=== PATIENT | female | born 1980 | race Caucasian/White ===

== ENCOUNTER 2018-02-01 20:01 | Emergency (ER) | payer OTHER, MEDICAID ==
[~2018-02-01] VITALS: Ht 152.4 cm; Wt 72.6 kg
[~2018-02-01 20:01] MED LIST: ACETAMINOPHEN-1 EAC1 PO; ACYCLOVIR 800800 MG PO; AMOXICILLIN 50500 MG; ANDRODERM1 EAC2 PO; BACTRIM DS TAB1 EACH PO; BENADRYL ITCH28.3 G1 TP; CARBAMAZEPINE200 M2 PO; CLONAZEPAM 0.50.5 M1; CLONAZEPAM 1 MG1 M1 PO; CYCLOBENZAPRINE; DARVOCET-N 1001 EACH PO; DIVIGEL0.25 MG TD; ESTRACE1 MG PO; FAMVIR250 MG PO; FLEXERIL PO; FLOMAX0.4 MG PO; HYDROCODONE-AP1 EAC6 PO; HYDROCORTISONE30 G9 RE; HYOSCYAMINE0.375 M2 PO; IBUPROFEN 800800 M1 PO; IBUPROFEN 800800 MG PO; IMITREX 50 MG T50 MG PO; IMITREX100 MG PO; LIDOCAINE VISC100 M1 MM; MEDROLDOSEPACK PO; NAPROSYN500 MG PO; NOHOMEMEDICATIONS; NORCO 10-325 T1 EACH; NORCO 5-325 TA1 EACH PO; ORPHENADRINE C100 M2 PO; PENICILLIN V P500 MG PO; PENICILLIN VK500 MG PO; PERCOCET 5-3251 EACH PO; PREDNISONE 20 M20 M1 PO; PREDNISONE 20 M20 MG PO; PREDNISONE50 MG PO; PROPRANOLOL 1010 M1 PO; PROZAC40 MG; PYRIDIUM200 MG PO; ROBAXIN500 MG PO; TEGRETOL XR200 MG; TEGRETOL XR200 MG PO; TRAZODONE 150150 M1 PO; TUSSIONEX PENN473 ML PO; VENTOLIN HFA 1818 GM INH; XANAX 0.5 MG0.5 MG PO; ZOFRAN 4 MG ORAL4 MG PO; ZOFRAN ODT4 MG PO; ZOVIRAX 5% OINT15 GM TP; ZPAK PO
[2018-02-01] MEDS ORDERED: BUSPIRONE HCL10 MG PO (20:10)
[2018-02-01] MEDS ORDERED: ABILIFY 5 MG TAB5 M1 PO (20:10)
[2018-02-01] MEDS ORDERED: PROMETHAZINE V473 ML PO (20:24)
[2018-02-01] MEDS ORDERED: PROAIR HFA8.5 GM INH (20:24)
[2018-02-01] MEDS ORDERED: TESSALON PERLE100 MG PO (20:24)
[2018-02-01] MEDS ORDERED: AMOXICILLIN 50500 MG PO (20:24)
[2018-02-01 20:36] VITALS: BP 143/74
== END 2018-02-01 20:49 | disposition home or self-care (01) ==
LOC: M.ERS 20:01
DX: J20.9 Acute bronchitis, unspecified (principal); G43.909 Migraine, unspecified, not intractable, without status migrainosus; F31.9 Bipolar disorder, unspecified; M19.90 Unspecified osteoarthritis, unspecified site; G89.29 Other chronic pain; M54.9 Dorsalgia, unspecified; N80.9 Endometriosis, unspecified; F17.210 Nicotine dependence, cigarettes, uncomplicated; Z90.710 Acquired absence of both cervix and uterus; Z90.89 Acquired absence of other organs; Z87.442 Personal history of urinary calculi; Z88.5 Allergy status to narcotic agent; Z88.8 Allergy status to other drugs, medicaments and biological substances

== ENCOUNTER 2018-02-07 20:31 | Emergency (ER) | payer OTHER, MEDICAID ==
[~2018-02-07] VITALS: Ht 152.4 cm; Wt 77.1 kg
[~2018-02-07 20:31] MED LIST changes: +ABILIFY 5 MG TAB5 M1 PO; +AMOXICILLIN 50500 MG PO; +BUSPIRONE HCL10 MG PO; +PROAIR HFA8.5 GM INH; +PROMETHAZINE V473 ML PO; +TESSALON PERLE100 MG PO
[2018-02-07] MEDS ORDERED: LAMICTAL XR200 MG (20:45)
[2018-02-07 22:16] VITALS: BP 115/77
== END 2018-02-07 22:19 | disposition home or self-care (01) ==
LOC: M.ERS 20:31
DX: G43.909 Migraine, unspecified, not intractable, without status migrainosus (principal); F31.9 Bipolar disorder, unspecified; M19.90 Unspecified osteoarthritis, unspecified site; G89.29 Other chronic pain; M54.9 Dorsalgia, unspecified; F17.210 Nicotine dependence, cigarettes, uncomplicated; Z90.710 Acquired absence of both cervix and uterus; Z87.442 Personal history of urinary calculi; Z90.89 Acquired absence of other organs; Z88.5 Allergy status to narcotic agent; Z88.8 Allergy status to other drugs, medicaments and biological substances

== ENCOUNTER 2018-03-03 19:29 | Emergency (ER) | payer OTHER, MEDICAID ==
[~2018-03-03] VITALS: Ht 152.4 cm; Wt 79.1 kg
[~2018-03-03 19:29] MED LIST changes: +LAMICTAL XR200 MG
[2018-03-03 19:39] VITALS: BP 135/66
[2018-03-03] MEDS ORDERED: NEURONTIN 300300 M1 PO (19:41)
[2018-03-03 20:17] LABS: URINE BILIRUBIN NEGATIVE (Negative); URINE BLOOD NEGATIVE (Negative); URINE CLARITY CLOUDY; URINE COLOR YELLOW; URINE GLUCOSE-RANDOM NEGATIVE (Negative); URINE KETONES NEGATIVE (Negative); URINE LEUKOCYTES-REFLEX NEGATIVE (Negative); URINE NITRITE-REFLEX NEGATIVE (Negative); URINE PROTEIN NEGATIVE (Negative); URINE UROBILINOGEN 0.2 E.U./dl (0.2-1.0)
[2018-03-03 20:25] LABS: CASTS None Seen /LPF (None Seen); SQUAMOUS >10 Many /LPF (0-3)
[2018-03-03 20:26] LABS: AMORPHOUS PHOSPHATES Many /LPF (None Seen); URINE RBC 0-2 Rare /HPF (0-2); URINE WBC-REFLEX 0-5 Rare /HPF (0-5)
[2018-03-03] MEDS ORDERED: MEDROLDOSEPACK PO (20:30)
[2018-03-03] MEDS ORDERED: HYDROCODONE-AP1 EAC6 PO (20:30)
== END 2018-03-03 21:07 | disposition home or self-care (01) ==
LOC: M.ERS 19:29
PROVIDERS: Physician Assistant
DX: M54.5 Low back pain (principal); G43.909 Migraine, unspecified, not intractable, without status migrainosus; F31.9 Bipolar disorder, unspecified; M19.90 Unspecified osteoarthritis, unspecified site; F17.210 Nicotine dependence, cigarettes, uncomplicated; Z87.442 Personal history of urinary calculi; Z88.5 Allergy status to narcotic agent; Z88.8 Allergy status to other drugs, medicaments and biological substances

== ENCOUNTER 2018-04-18 17:49 | Emergency (ER) | payer OTHER, MEDICAID ==
[~2018-04-18] VITALS: Ht 152.4 cm; Wt 77.1 kg
[~2018-04-18 17:49] MED LIST changes: +NEURONTIN 300300 M1 PO
[2018-04-18] MEDS ORDERED: NAPROSYN500 MG PO (18:51)
[2018-04-18 19:52] VITALS: BP 119/78
== END 2018-04-18 19:53 | disposition home or self-care (01) ==
LOC: M.ERS 17:49
DX: M54.5 Low back pain (principal); G43.909 Migraine, unspecified, not intractable, without status migrainosus; F31.9 Bipolar disorder, unspecified; M19.90 Unspecified osteoarthritis, unspecified site; G89.29 Other chronic pain; F17.210 Nicotine dependence, cigarettes, uncomplicated; Z88.5 Allergy status to narcotic agent

== ENCOUNTER 2018-05-16 23:25 | Emergency (ER) | payer OTHER, MEDICAID ==
[~2018-05-16] VITALS: Ht 152.4 cm; Wt 77.1 kg
[2018-05-16] MEDS ORDERED: LAMICTAL100 MG (23:38)
[2018-05-16] MEDS ORDERED: BACTROBAN CREAM30 G1 TOP (23:51)
[2018-05-16] MEDS ORDERED: DOXYCYCLINE 10100 MG PO (23:51)
[2018-05-17 00:06] VITALS: BP 132/60
== END 2018-05-17 00:07 | disposition home or self-care (01) ==
LOC: M.ERS 23:25
DX: L98.9 Disorder of the skin and subcutaneous tissue, unspecified (principal); F31.9 Bipolar disorder, unspecified; G43.909 Migraine, unspecified, not intractable, without status migrainosus; M19.90 Unspecified osteoarthritis, unspecified site; F17.210 Nicotine dependence, cigarettes, uncomplicated; Z90.710 Acquired absence of both cervix and uterus; Z88.6 Allergy status to analgesic agent; Z88.8 Allergy status to other drugs, medicaments and biological substances

== ENCOUNTER 2018-09-17 11:05 | Emergency (ER) | payer OTHER, MEDICAID ==
[~2018-09-17] VITALS: Ht 152.4 cm; Wt 79.4 kg
[~2018-09-17 11:05] MED LIST changes: +BACTROBAN CREAM30 G1 TOP; +DOXYCYCLINE 10100 MG PO; +LAMICTAL100 MG
[2018-09-17] MEDS ORDERED: KEFLEX500 M1 PO (11:18)
[2018-09-17 11:23] VITALS: BP 133/82
== END 2018-09-17 11:23 | disposition home or self-care (01) ==
LOC: M.ERS 11:05
DX: L03.112 Cellulitis of left axilla (principal); G43.909 Migraine, unspecified, not intractable, without status migrainosus; F31.9 Bipolar disorder, unspecified; M19.90 Unspecified osteoarthritis, unspecified site; M54.9 Dorsalgia, unspecified; G89.29 Other chronic pain; Z90.710 Acquired absence of both cervix and uterus; F17.210 Nicotine dependence, cigarettes, uncomplicated; Z88.5 Allergy status to narcotic agent; Z88.8 Allergy status to other drugs, medicaments and biological substances

== ENCOUNTER 2018-11-21 16:57 | Inpatient (IN) | payer OTHER, MEDICAID ==
[~2018-11-21] VITALS: Ht 152.4 cm; Wt 81.2 kg
[~2018-11-21 16:57] MED LIST changes: +KEFLEX500 M1 PO; -LAMICTAL100 MG; +LAMOTRIGINE150 MG PO
[2018-11-21 17:08] VITALS: BP 136/71
[2018-11-21] MEDS ORDERED: LOPRESSOR50 PO (17:12)
[2018-11-21] MEDS ORDERED: XANAX1 MG PO (17:13)
[2018-11-21] MEDS ORDERED: NORCO 7.5-3251 EACH PO (17:14)
[2018-11-21 17:47] LABS: ABSOLUTE BASOPHILS 0.1 thou/uL (0.0-0.2); ABSOLUTE LYMPHOCYTES 2.6 thou/uL (0.8-5.3); ABSOLUTE MONOCYTES 0.9 thou/uL (0.0-1.2); ABSOLUTE NEUTROPHILS 10.2 thou/uL (1.6-8.1); BASOPHILS 0.7 %; EOSINOPHILS 0.2 %; HEMATOCRIT 34.1 % (37.0-47.0); HEMOGLOBIN 11.2 gm/dL (12.0-15.0); LYMPHOCYTES 18.7 %; MCH 32.5 pg (26.0-34.0); MCHC 32.9 g/dL (28.0-37.0); MCV 98.7 fL (80.0-100.0); MONOCYTES 6.2 %; MPV 8.2 fl. (7.2-11.1); NUCLEATED RBCS 0 /100WBC; PLATELET COUNT* 227 thou/uL (150-400); POLYS 74.2 %; RBC 3.45 mil/uL (4.20-5.00); RDW-CV 12.5 % (10.5-14.5); WBC 13.8 thou/uL (4.0-11.0)
[2018-11-21 17:59] LABS: ANION GAP 6 mmol/L (7-16); BUN 9 mg/dL (7-18); CALCIUM 8.5 mg/dL (8.5-10.1); CHLORIDE 106 mmol/L (98-107); CO2 27 mmol/L (21-32); CREATININE 0.7 mg/dL (0.6-1.3); GLUCOSE 85 mg/dL (70-99); POTASSIUM 3.3 mmol/L (3.5-5.1); SODIUM 139 mmol/L (136-145)
[2018-11-21 18:11] LABS: ALBUMIN 2.9 g/dL (3.4-5.0); ALKALINE PHOSPHATASE 66 U/L (46-116); SGOT 20 U/L (15-37); SGPT 21 U/L (30-65); TOTAL BILIRUBIN 0.3 mg/dL (<0.1-1.0); TOTAL PROTEIN 6.4 g/dL (6.4-8.2); TROPONIN-I LEVEL <0.06 ng/mL (<0.06)
[2018-11-21 19:02] VITALS: BP 130/78
--- NOTE | 2018-11-21 19:43 | NUR ---
PATIENT ARRIVED TO FLOOR AT 1845. PLACED ON RETAIL LOAN OFFICER, TRACING ST. PATIENT ON 2L/NC. SETTLED INTO BED. ORIENTED TO ROOM, BED CONTROLS, CALL LIGHT AND ENVIRONMENT. FAMILY AT BEDSIDE. IV ANTIBIOTICS CURRENTLY INFUSING. REPORT GIVEN TO ONCOMING NURSE. CALL LIGHT WITHIN REACH. WILL CONTINUE WITH PLAN OF CARE.
[2018-11-21 20:00] VITALS: BP 131/74
[2018-11-22] VITALS: BP 125/79
[2018-11-22 04:00] VITALS: BP 130/81
--- NOTE | 2018-11-22 04:09 | NUR ---
Patient arrived on unit at 1855. family practice physician assessment completed as documented. No complaints of pain or discomfort noted. Did state that she was nauseous as she sent her family to get her taco [employer]ill[employer] for dinner. Finished a box lunch at approx 2300 last evening. Sinus rhythm to sinus tach on the monitor. No skin issues noted. Able to ambulate independently to the restroom.
[2018-11-22 04:45] LABS: HEMATOCRIT 32.9 % (37.0-47.0); HEMOGLOBIN 11.1 gm/dL (12.0-15.0); MCH 33.1 pg (26.0-34.0); MCHC 33.6 g/dL (28.0-37.0); MCV 98.5 fL (80.0-100.0); MPV 8.8 fl. (7.2-11.1); NUCLEATED RBCS 0 /100WBC; PLATELET COUNT* 214 thou/uL (150-400); RBC 3.34 mil/uL (4.20-5.00); RDW-CV 12.5 % (10.5-14.5); WBC 9.8 thou/uL (4.0-11.0)
[2018-11-22 04:56] LABS: CALCIUM 8.3 mg/dL (8.5-10.1); CREATININE 0.7 mg/dL (0.6-1.3); POTASSIUM 4.1 mmol/L (3.5-5.1)
[2018-11-22 05:46] LABS: ABSOLUTE LYMPHOCYTES 0.7 thou/uL (0.8-5.3); ABSOLUTE MONOCYTES 0.1 thou/uL (0.0-1.2); PLATELET ESTIMATE ADEQUATE
[2018-11-22 05:47] LABS: ANISOCYTOSIS 1+; POIKILOCYTOSIS 1+
[2018-11-22 08:30] VITALS: BP 145/93
[2018-11-22 09:45] LABS: URINE BILIRUBIN NEGATIVE (Negative); URINE BLOOD NEGATIVE (Negative); URINE CLARITY CLEAR; URINE COLOR YELLOW; URINE GLUCOSE-RANDOM NEGATIVE (Negative); URINE KETONES NEGATIVE (Negative); URINE LEUKOCYTES-REFLEX NEGATIVE (Negative); URINE NITRITE-REFLEX NEGATIVE (Negative); URINE PROTEIN NEGATIVE (Negative); URINE UROBILINOGEN 0.2 E.U./dl (0.2-1.0)
[2018-11-22 09:53] LABS: AMP/METHAMP Negative (Negative); BARBITURATES Negative (Negative); BENZODIAZEPINES POSITIVE (Negative); COCAINE Negative (Negative); METHADONE Negative (Negative); OPIATES POSITIVE (Negative); PCP Negative (Negative); THC Negative (Negative)
[2018-11-22 11:04] VITALS: BP 130/81
[2018-11-22] MEDS ORDERED: PROTONIX40 M1 PO (11:13)
[2018-11-22] MEDS ORDERED: AUGMENTIN 875-1 EACH PO (11:13)
[2018-11-22] MEDS ORDERED: PREDNISONE 10 M10 MG PO (11:15)
[2018-11-22] MEDS ORDERED: VENTOLIN HFA 1818 GM INH (11:16)
[2018-11-22 13:23] VITALS: BP 130/81
--- NOTE | 2018-11-22 13:27 | NUR ---
PATIENT IS ALERT AND ORIENTED TODAY, UP AD NOAH IN ROOM. VITAL SIGNS STABLE ON ROOM AIR. NO COMPLAINTS OF ANY KIND TODAY. PATIENT IS BEING DISCHARGED TO HOME. DISCHARGE INSTRUCTIONS AND PRESCRIPTIONS GIVEN TO PATIENT. QUESTIONS ANSWERED FOR PATIENT. AMBULATED OUT WITH VOLUNTEER TO HOME.
--- NOTE | 2018-11-22 13:55 | EKG ---
[place] [address] ELECTROCARDIOGRAM REPORT Name: SAADIA LECHUGA Room: [address] IN [facility].#: [id number] Admission: 11/21/18 Attend Phys: Aaron Cooper MD Discharge: 11/22/18 Date of : 82 Report #: [id number] THIS REPORT FOR: //name// [facility] ED Test Date: 2018-11-21 Test Time: 17:28:16 Pat Name: SAADIA LECHUGA Department: Room: [facility] Gender: F Brands Editor: ARASH : 1980 Requested By: Alla Knight Order Number: [id number] MD: Cabrera Hall Measurements Intervals Nenzel Rate: 114 P: 64 CO: 157 QRS: 40 QRSD: 79 T: 30 QT: 328 QTc: 452 Interpretive Statements Sinus tachycardia Probable left atrial enlargement Minimal ST depression, lateral leads Compared to ECG 05/16/2011 15:03:55 ST (T wave) deviation now present Sinus rhythm no longer present Short CO interval no longer present Prolonged QT interval no longer present st depression noted Electronically Signed On 11-22-2018 13:55:01 BROOM MAN by Cabrera Hall [email or web address] <ELECTRONICALLY SIGNED> By: Cabrera Hall MD, [facility] 11/22/18 1355 1728 1728 Cabrera Hall MD, [facility] /EPI
== END 2018-11-22 13:25 | disposition home or self-care (01) | DRG 177 ==
LOC: M.ERS 16:57 → M.TBA-ER 17:28 → M.3W 18:50
PROVIDERS: Physician Assistant; ADMIT Internal Medicine
DX: J15.6 Pneumonia due to other Gram-negative bacteria (principal); J96.01 Acute respiratory failure with hypoxia; D72.829 Elevated white blood cell count, unspecified; R00.0 Tachycardia, unspecified; M19.90 Unspecified osteoarthritis, unspecified site; F31.9 Bipolar disorder, unspecified; F17.210 Nicotine dependence, cigarettes, uncomplicated; G43.909 Migraine, unspecified, not intractable, without status migrainosus; Z88.5 Allergy status to narcotic agent; Z90.710 Acquired absence of both cervix and uterus; Z88.8 Allergy status to other drugs, medicaments and biological substances

== ENCOUNTER 2019-03-30 18:50 | Emergency (ER) | payer OTHER, MEDICAID ==
[~2019-03-30] VITALS: Ht 154.9 cm; Wt 78.0 kg
[~2019-03-30 18:50] MED LIST changes: +AUGMENTIN 875-1 EACH PO; +LOPRESSOR50 PO; +NORCO 7.5-3251 EACH PO; +PREDNISONE 10 M10 MG PO; +PROTONIX40 M1 PO; +XANAX1 MG PO
[2019-03-30 22:17] VITALS: BP 144/68
== END 2019-03-30 22:21 | disposition home or self-care (01) ==
LOC: M.ERS 18:50
DX: G43.909 Migraine, unspecified, not intractable, without status migrainosus (principal); R11.2 Nausea with vomiting, unspecified; F17.210 Nicotine dependence, cigarettes, uncomplicated; F31.9 Bipolar disorder, unspecified; M19.90 Unspecified osteoarthritis, unspecified site; M54.9 Dorsalgia, unspecified; G89.29 Other chronic pain; N80.9 Endometriosis, unspecified; Z90.710 Acquired absence of both cervix and uterus; Z90.89 Acquired absence of other organs; Z87.442 Personal history of urinary calculi; Z88.8 Allergy status to other drugs, medicaments and biological substances; Z88.5 Allergy status to narcotic agent

== ENCOUNTER 2019-11-28 18:52 | Emergency (ER) | payer OTHER, MEDICAID ==
[~2019-11-28] VITALS: Ht 154.9 cm; Wt 80.3 kg
[2019-11-28] MEDS ORDERED: PREDNISONE 20 M20 MG PO (19:11)
[2019-11-28] MEDS ORDERED: IMURAN 50MG TAB50 M1 PO (19:11)
[2019-11-28] MEDS ORDERED: VITAMIN D400 UNIT PO (19:12)
[2019-11-28 20:09] VITALS: BP 150/69
== END 2019-11-28 20:12 | disposition home or self-care (01) ==
LOC: M.ERS 18:52
DX: S00.83XA Contusion of other part of head, initial encounter (principal); G43.909 Migraine, unspecified, not intractable, without status migrainosus; M19.90 Unspecified osteoarthritis, unspecified site; N80.9 Endometriosis, unspecified; G89.29 Other chronic pain; F17.210 Nicotine dependence, cigarettes, uncomplicated; Z88.5 Allergy status to narcotic agent; Z88.8 Allergy status to other drugs, medicaments and biological substances; Z90.710 Acquired absence of both cervix and uterus; Z90.89 Acquired absence of other organs; Z87.442 Personal history of urinary calculi

== ENCOUNTER 2021-07-09 15:54 | Emergency (ER) | payer OTHER, MEDICAID ==
[~2021-07-09] VITALS: Ht 154.9 cm; Wt 92.5 kg
[~2021-07-09 15:54] MED LIST changes: +IMURAN 50MG TAB50 M1 PO; +VITAMIN D400 UNIT PO
[2021-07-09] MEDS ORDERED: CELLCEPT500 MG PO (16:14)
[2021-07-09] MEDS ORDERED: LASIX 40 MG TAB40 MG PO (16:15)
[2021-07-09 17:53] VITALS: BP 116/82
== END 2021-07-09 17:54 | disposition left against medical advice (07) ==
LOC: M.ERS 15:54
DX: M25.561 Pain in right knee (principal); Z53.21 Procedure and treatment not carried out due to patient leaving prior to being seen by health care provider

== ENCOUNTER 2021-09-07 22:39 | Emergency (ER) | payer OTHER, MEDICAID ==
[~2021-09-07] VITALS: Ht 170.2 cm; Wt 95.3 kg
[~2021-09-07 22:39] MED LIST changes: +CELLCEPT500 MG PO; +LASIX 40 MG TAB40 MG PO
[2021-09-07] MEDS ORDERED: COMPAZINE10 M2 PO (23:38)
[2021-09-08 00:36] VITALS: BP 144/78
== END 2021-09-08 00:36 | disposition home or self-care (01) ==
LOC: M.ERS 22:39
DX: G43.909 Migraine, unspecified, not intractable, without status migrainosus (principal); F31.9 Bipolar disorder, unspecified; M19.90 Unspecified osteoarthritis, unspecified site; F17.210 Nicotine dependence, cigarettes, uncomplicated; Z90.711 Acquired absence of uterus with remaining cervical stump; Z87.442 Personal history of urinary calculi; Z90.89 Acquired absence of other organs; Z79.899 Other long term (current) drug therapy; Z88.5 Allergy status to narcotic agent; Z88.8 Allergy status to other drugs, medicaments and biological substances